=== PATIENT | female | born 1980 | race Caucasian/White ===

== ENCOUNTER 2018-04-14 04:20 | Emergency (ER) | payer BC, MEDICAID ==
[2018-04-14] MEDS: LIDOCAINE/MYLANTA 40 ML BTL PO (05:19)
[2018-04-14] MEDS: ONDANSETRON 4 MG INJ IV (05:22)
== END 2018-04-14 06:02 | disposition home or self-care (01) ==
LOC: E/R 04:20
DX: R10.13 Epigastric pain (principal); R11.0 Nausea
CPT/HCPCS: 99283